=== PATIENT | male | born 1950 | race Caucasian/White ===

== ENCOUNTER 2018-08-01 07:01 | Inpatient (IN) | payer MEDICARE ==
[2018-08-01] VITALS (7 sets, daily range): BP systolic 119–160; BP diastolic 70–103
[~2018-08-01] VITALS: Ht 190.5 cm; Wt 109.3 kg
[2018-08-01] MEDS ORDERED: normal saline 1000ML IV soln IV ONE (07:15)
[2018-08-01] MEDS ORDERED: famotidine/PF 10 mg/ml inj IV ONE (07:15)
[2018-08-01] MEDS ORDERED: pantoprazole 40 MG vial IV ONE (07:15)
[2018-08-01] MEDS ORDERED: pantoprazole 40MG/NS 100ML BAG 100 ML IV ONE (07:30)
[2018-08-01] MEDS ORDERED: ASPI-1265 PO (07:47)
[2018-08-01] MEDS ORDERED: LOVA20TA2 PO (07:48)
[2018-08-01] MEDS ORDERED: BENA20TA82 PO (07:49)
[2018-08-01] MEDS ORDERED: DILT360C29 PO (07:50)
[2018-08-01 08:01] LABS: BASOPHILS # (AUTO) 0.1 X10'3 (0-0.2); BASOPHILS % (AUTO) 1.5 % (0-1); EOSINOPHILS % (AUTO) 0.2 % (0-6); HEMATOCRIT 42.3 % (42.0-52.0); HEMOGLOBIN 14.4 g/dl (14.0-17.9); LYMPHOCYTES # (AUTO) 0.8 X10'3 (1.1-4.8); LYMPHOCYTES % (AUTO) 8.9 % (21-51); MEAN CORPUSCULAR HEMOGLOBIN 32.5 PG (27.0-31.0); MEAN CORPUSCULAR VOLUME 95.3 FL (78-98); MEAN PLATELET VOLUME 8.9 FL (7.4-10.4); MONOCYTES # (AUTO) 0.6 X10'3 (0-0.9); MONOCYTES % (AUTO) 6.7 % (2-12); NEUTROPHILS # (AUTO) 7.4 X10'3 (1.8-7.7); NEUTROPHILS % (AUTO) 82.7 % (42-75); PLATELET COUNT 187 X10'3 (140-440); RED BLOOD COUNT 4.44 X10'6 (4.70-6.10); RED CELL DISTRIBUTION WIDTH 12.2 % (11.5-14.5); WHITE BLOOD COUNT 8.9 X10'3 (4.5-11.0)
[2018-08-01 08:18] LABS: INR 1.1 INR; PARTIAL THROMBOPLASTIN TIME 23 SECONDS (22-32); PROTHROMBIN TIME 10.7 SECONDS (9.0-12.0)
[2018-08-01 08:23] LABS: ALANINE AMINOTRANSFERASE 37 U/L (12-78); ALBUMIN 3.5 G/DL (3.4-5.0); ALBUMIN/GLOBULIN RATIO 1.1 (1.1-1.5); ALKALINE PHOSPHATASE 62 IU/L (46-116); ANION GAP 9 (8-16); ASPARTATE AMINO TRANSFERASE 17 U/L (10-37); BILIRUBIN,TOTAL 0.5 MG/DL (0.1-1.0); BLOOD UREA NITROGEN 47 MG/DL (7-18); BUN/CREATININE RATIO 35.3 (5.4-32.0); CALCIUM 9.2 MG/DL (8.5-10.1); CHLORIDE 105 MMOL/L (99-107); CREATININE 1.33 MG/DL (0.60-1.10); GLUCOSE 129 MG/DL (70-104); POTASSIUM 4.8 MMOL/L (3.5-5.1); SODIUM 137 MMOL/L (135-145); TOTAL CARBON DIOXIDE 22.8 MMOL/L (24-32); TOTAL PROTEIN 6.6 G/DL (6.4-8.2); eGFR 54 ML/MIN
[2018-08-01 08:31] LABS: CLARITY,URINE CLEAR (Clear); COLOR,URINE STRAW (Yellow); GLUCOSE, URINE NEGATIVE (Neg); KETONES,URINE TRACE mg/dl (Neg); LEUKOCYTE ESTERASE ,URINE NEGATIVE (Neg); NITRITES, URINE NEGATIVE (Neg); OCCULT BLOOD,URINE NEGATIVE (Neg); PROTEIN,URINE NEGATIVE (Neg); UA COLLECTION TYPE CLN CATCH MIDSTREAM; UROBILINOGEN,URINE 0.2 E.U/dL (0.2-1.0)
[2018-08-01 09:30] LABS: PLATELET ESTIMATE NORMAL; TOTAL CELLS COUNTED 100
--- NOTE | 2018-08-01 09:55 | NUR ---
Pt. denies c/o. at bedside. Awaiting hospital admission.
[2018-08-01] MEDS ORDERED: magnesium hydroxide 30ml (MOM) UD suspension PO PRN (12:30)
[2018-08-01] MEDS ORDERED: ondansetron/PF 4mg/2ml inj IV PRN (12:30)
[2018-08-01] MEDS ORDERED: magnesium Cl slow-release 64mg tablet PO PRN (12:30)
[2018-08-01] MEDS ORDERED: mag hydrox/Alum hydrox/simeth 30ml oral suspension PO PRN (12:30)
[2018-08-01] MEDS ORDERED: potassium Cl 20 mEq SR tablet PO PRN ×2 (12:30)
[2018-08-01] MEDS ORDERED: magnesium 4gm in 100ml NS 100 ML IV PRN (12:30)
[2018-08-01] MEDS ORDERED: acetaminophen 325mg tablet PO PRN ×2 (12:30)
[2018-08-01] MEDS ORDERED: potassium Cl 40MEQ/NS 500ml 500 ML IV PRN ×2 (12:30)
[2018-08-01] MEDS: normal saline 1000ml 1,000 ML IV SCH ×2 (13:05→22:27)
[2018-08-01] MEDS ORDERED: fentaNYL/PF 50MCG/1 ML 2ML syringe ONE (15:17)
[2018-08-01] MEDS ORDERED: MIDAZolam 5mg/5ml vial ONE (15:18)
[2018-08-01] MEDS ORDERED: LIDOcaine Viscous 15ml cup ONE (15:18)
[2018-08-01] MEDS: pantoprazole 40MG/NS 100ML BAG 100 ML IV SCH ×2 (17:32→22:06)
--- NOTE | 2018-08-01 18:36 | NUR ---
Problems reprioritized. Patient report given, questions answered & plan of care reviewed with JAROCHO Alaniz & Diego RN.
--- NOTE | 2018-08-01 18:40 | NUR ---
Patient in room PCU 3017. I have received report from JAROCHO Majano and had the opportunity to ask questions and assume patient care. Patient is awake and alert with family present at bedside. Patient is NPO at this time. In no distress, A&Ox4.
[2018-08-01] MEDS ORDERED: temazepam 15mg capsule PO PRN (21:00)
[2018-08-02 02:00] VITALS: BP 148/98
[2018-08-02] MEDS: pantoprazole 40MG/NS 100ML BAG 100 ML IV SCH ×3 (02:34→09:49)
[2018-08-02] MEDS: normal saline 1000ml 1,000 ML IV SCH (02:35)
[2018-08-02 05:51] LABS: HEMATOCRIT 32.3 % (42.0-52.0); HEMOGLOBIN 11.3 g/dl (14.0-17.9); MEAN CORPUSCULAR HEMOGLOBIN 33.3 PG (27.0-31.0); MEAN CORPUSCULAR VOLUME 95.1 FL (78-98); RED CELL DISTRIBUTION WIDTH 12.4 % (11.5-14.5); WHITE BLOOD COUNT 5.4 X10'3 (4.5-11.0)
[2018-08-02 05:52] LABS: MEAN PLATELET VOLUME 8.4 FL (7.4-10.4); PLATELET COUNT 153 X10'3 (140-440)
[2018-08-02 06:04] LABS: ALBUMIN 3.1 G/DL (3.4-5.0); ANION GAP 8 (8-16); BLOOD UREA NITROGEN 24 MG/DL (7-18); BUN/CREATININE RATIO 21.4 (5.4-32.0); CALCIUM 7.8 MG/DL (8.5-10.1); CHLORIDE 107 MMOL/L (99-107); CREATININE 1.12 MG/DL (0.60-1.10); GLUCOSE 99 MG/DL (70-104); MAGNESIUM 1.8 MG/DL (1.5-2.4); POTASSIUM 3.9 MMOL/L (3.5-5.1); SODIUM 139 MMOL/L (135-145); TOTAL CARBON DIOXIDE 24.5 MMOL/L (24-32); eGFR 65 ML/MIN
--- NOTE | 2018-08-02 06:44 | NUR ---
Patient in room PCU 3017. I have received report from Katty AVENDAÑO and had the opportunity to ask questions and assume patient care.
--- NOTE | 2018-08-02 06:45 | NUR ---
Problems reprioritized. Patient report given, questions answered & plan of care reviewed with JAROCHO Hair.
[2018-08-02 07:00] VITALS: BP 108/75
--- NOTE | 2018-08-02 07:13 | NUR ---
[place] documentation: I have reviewed and agree with all interventions, assessments performed and documented by JAROCHO Cortez.
--- NOTE | 2018-08-02 07:30 | NUR ---
[place] Medication Administration: For this medication-pass time frame, all medication were reviewed, dispensed, administered and documented per hospital policy by JAROCHO Cortez .
[2018-08-02] MEDS ORDERED: K and/or MAG REPLACEMENT MC SCH (08:00)
[2018-08-02] MEDS ORDERED: lisinopril 20mg tablet PO SCH (08:00)
[2018-08-02 11:00] VITALS: BP 133/74
[2018-08-02 12:17] LABS: HEMATOCRIT 34.2 % (42.0-52.0); HEMOGLOBIN 11.7 g/dl (14.0-17.9); MEAN CORPUSCULAR HEMOGLOBIN 32.5 PG (27.0-31.0); MEAN CORPUSCULAR HGB CONC 34.3 % (33.0-36.5); MEAN CORPUSCULAR VOLUME 94.8 FL (78-98); MEAN PLATELET VOLUME 8.4 FL (7.4-10.4); PLATELET COUNT 161 X10'3 (140-440); RED BLOOD COUNT 3.61 X10'6 (4.70-6.10); RED CELL DISTRIBUTION WIDTH 12.4 % (11.5-14.5); WHITE BLOOD COUNT 5.6 X10'3 (4.5-11.0)
[2018-08-02] MEDS ORDERED: pantoprazole 40MG/NS 100ML BAG 100 ML IV ONE (15:35)
[2018-08-02] MEDS ORDERED: PANT-47 PO (16:28)
--- NOTE | 2018-08-02 18:33 | NUR ---
Pt safely discharged. All paperwork completed, reviewed, and signed. IV dc'd, id bracelets removed, tele box returned. Pt happy with care and discharge.
[2018-08-05 09:45] LABS: OCCULT BLOOD STOOL POSITIVE (Neg)
== END 2018-08-02 17:30 | disposition home or self-care (01) | DRG 682 ==
LOC: ER 07:02 → ED HOLD 12:27 → PCU 3S 16:00 → CMPBEDREQ 19:27
PROVIDERS: ADMIT Family Medicine; ATTEND Hospitalist
PROC: 0DB68ZX Excision of Stomach, Via Natural or Artificial Opening Endoscopic, Diagnostic (ICD-10-PCS; principal; 2018-08-01)
PROC: 0W3P8ZZ Control Bleeding in Gastrointestinal Tract, Via Natural or Artificial Opening Endoscopic (ICD-10-PCS; 2018-08-01)
DX: N17.9 Acute kidney failure, unspecified (principal); K26.4 Chronic or unspecified duodenal ulcer with hemorrhage; E78.5 Hyperlipidemia, unspecified; K29.70 Gastritis, unspecified, without bleeding; T39.395A Adverse effect of other nonsteroidal anti-inflammatory drugs [NSAID], initial encounter; E86.0 Dehydration; K20.9 Esophagitis, unspecified; F10.10 Alcohol abuse, uncomplicated; I10 Essential (primary) hypertension; Z79.899 Other long term (current) drug therapy; Z79.82 Long term (current) use of aspirin; Z86.73 Personal history of transient ischemic attack (TIA), and cerebral infarction without residual deficits; Y92.89 Other specified places as the place of occurrence of the external cause
CPT/HCPCS: 36415; 43239; 71045; 80048; 80053; 81003; 82272; 83735; 85025; 85027; 85610; 85730; 86885; 86900; 86901; 88305; 88342; 93005; 96365; 96375; 99152; 99285; A4620; C9113; G0378; J2250; J3010; J3490; J7030

== ENCOUNTER 2022-11-25 07:25 | Day surgery (SDC) | payer MEDICARE ==
[2022-11-24 09:05] LABS: BASOPHILS % (AUTO) 0.8 % (0-1); EOSINOPHILS # (AUTO) 0.1 X10'3 (0-0.9); EOSINOPHILS % (AUTO) 1.8 % (0-6); HEMATOCRIT 49.5 % (42.0-52.0); HEMOGLOBIN 17.2 g/dl (14.0-17.9); LYMPHOCYTES # (AUTO) 0.9 X10'3 (1.1-4.8); LYMPHOCYTES % (AUTO) 17.5 % (21-51); MEAN CORPUSCULAR HEMOGLOBIN 32.9 PG (27.0-31.0); MEAN CORPUSCULAR HGB CONC 34.8 g/dL (33.0-36.5); MEAN CORPUSCULAR VOLUME 94.6 FL (78-98); MONOCYTES # (AUTO) 0.6 X10'3 (0-0.9); MONOCYTES % (AUTO) 12.4 % (2-12); NEUTROPHILS # (AUTO) 3.3 X10'3 (1.8-7.7); NEUTROPHILS % (AUTO) 67.5 % (42-75); PLATELET COUNT 142 X10'3 (140-440); RED BLOOD COUNT 5.23 X10'6 (4.70-6.10)
[2022-11-24 09:15] LABS: APTT 28 SECONDS (22-32)
[2022-11-24 09:21] LABS: ALBUMIN 4.1 G/DL (3.4-5.0); ANION GAP 10 (8-16); BLOOD UREA NITROGEN 16 MG/DL (7-18); BUN/CREATININE RATIO 14.4 (10.0-20.0); CALCIUM 9.1 MG/DL (8.5-10.1); CHLORIDE 104 MMOL/L (99-107); CREATININE 1.11 MG/DL (0.60-1.10); GLUCOSE 107 MG/DL (70-104); POTASSIUM 3.7 MMOL/L (3.5-5.1); SODIUM 137 MMOL/L (135-145); TOTAL CARBON DIOXIDE 23.3 MMOL/L (24-32); eGFR 65 ML/MIN
[2022-11-25] VITALS (13 sets, daily range): BP systolic 142–187; BP diastolic 79–97
[~2022-11-25] VITALS: Ht 190.5 cm; Wt 111.4 kg
[~2022-11-25 07:25] MED LIST: ASPI-1071 PO; LOP25T PO; NITR0.4T51 SL; ROSU5TAB PO; TEST200V33 SQ
[2022-11-25] MEDS ORDERED: normal saline 1,000 ML IV SCH (07:45)
[2022-11-25] MEDS ORDERED: diphenhydrAMINE 25mg capsule PO PRN (07:45)
[2022-11-25] MEDS ORDERED: LORazepam 0.5 MG tablet PO PRN (07:45)
[2022-11-25] MEDS ORDERED: LIDOcaine 1% (10mg/ml) 2ml vial ONE (08:09)
[2022-11-25] MEDS ORDERED: UBID100C16 PO (08:09)
[2022-11-25] MEDS ORDERED: fentaNYL/PF 50MCG/1 ML 2ML syringe ONE (08:09)
[2022-11-25] MEDS ORDERED: midazolam 1 mg/ML 2ml injection ONE (08:09)
[2022-11-25] MEDS ORDERED: verapamil 2.5 mg/ml inj IV ONE (08:09)
[2022-11-25] MEDS ORDERED: MAGN100T5 PO (08:09)
[2022-11-25] MEDS ORDERED: nitroGLYCERIN-Tridil 50MG/D5W 250 ML IV ONE (08:09)
[2022-11-25] MEDS ORDERED: heparin 1,000unit/ml 10ml vial 10 ML ONE (08:09)
[2022-11-25] MEDS ORDERED: ASPI-1071 PO (08:09)
[2022-11-25] MEDS ORDERED: TADA20TA PO (08:09)
[2022-11-25] MEDS ORDERED: NITR0.4T48 SL (08:09)
[2022-11-25] MEDS ORDERED: iohexol 350 MG/ML 50ML vial IV ONE (08:10)
[2022-11-25] MEDS ORDERED: iohexol 350MG/ML 100ml bottle IV ONE ×2 (08:10→10:11)
[2022-11-25] MEDS ORDERED: ROSU20TA31 PO (08:15)
[2022-11-25] MEDS ORDERED: TEST200V6 IM (08:22)
[2022-11-25] MEDS ORDERED: CHOL50004 PO (08:22)
[2022-11-25] MEDS ORDERED: Cyanocobalamin PO (08:22)
[2022-11-25] MEDS ORDERED: heparin 25,000 UNIT/250ml bag 250 ML IV ONE (10:11)
[2022-11-25] MEDS ORDERED: clopidogrel 300mg tablet ONE (10:32)
[2022-11-25] MEDS ORDERED: atropine 0.1mg/ml 10ml syringe ONE (10:37)
--- NOTE | 2022-11-25 10:52 | NUR ---
Bedside report received from JAROCHO Grace s/p heart cath with PCI. Heparin gtt at 1000 units/hour. Right radial stable. Vasc band in place with no bleeding/hematoma noted.
--- NOTE | 2022-11-25 12:00 | NUR ---
Heparin gtt discontinued.
[2022-11-26] MEDS ORDERED: clopidogrel 75mg tablet PO SCH (10:50)
== END 2022-11-25 17:43 | disposition home or self-care (01) ==
LOC: SSTAY O 07:25
PROVIDERS: ATTEND Internal Medicine Cardiovascular Disease
DX: I25.10 Atherosclerotic heart disease of native coronary artery without angina pectoris (principal); E78.5 Hyperlipidemia, unspecified; I65.22 Occlusion and stenosis of left carotid artery; I10 Essential (primary) hypertension; I27.21 Secondary pulmonary arterial hypertension; Z95.5 Presence of coronary angioplasty implant and graft; Z79.82 Long term (current) use of aspirin; Z79.899 Other long term (current) drug therapy; Z87.891 Personal history of nicotine dependence; Z72.89 Other problems related to lifestyle; Z82.49 Family history of ischemic heart disease and other diseases of the circulatory system
CPT/HCPCS: 36415; 76937; 80048; 85025; 85347; 85610; 85730; 93005; 93458; 99152; 99153; C1725; C1751; C1769; C1874; C1894; C9600; J0461; J1644; J2250; J3010; J3490; J7030; Q0163; Q9967; A6258

== ENCOUNTER 2023-07-01 01:24 | Emergency (ER) | payer MEDICARE ==
[~2023-07-01] VITALS: Ht 190.5 cm; Wt 108.0 kg
[~2023-07-01 01:24] MED LIST changes: +CHOL50004 PO; +Cyanocobalamin PO; -LOP25T PO; +MAGN100T5 PO; +NITR0.4T48 SL; -NITR0.4T51 SL; +ROSU20TA73 PO; -ROSU5TAB PO; +TADA20TA PO; -TEST200V33 SQ; +TEST200V6 IM; +UBID100C16 PO
[2023-07-01 01:30] VITALS: TEMP 98.9
[2023-07-01 02:03] LABS: BASOPHILS % (AUTO) 0.5 % (0-1); EOSINOPHILS # (AUTO) 0.1 X10'3 (0-0.9); EOSINOPHILS % (AUTO) 0.7 % (0-6); HEMATOCRIT 43.2 % (42.0-52.0); HEMOGLOBIN 14.7 g/dl (14.0-17.9); LYMPHOCYTES % (AUTO) 9.7 % (21-51); MEAN CORPUSCULAR HEMOGLOBIN 32.8 PG (27.0-31.0); MEAN CORPUSCULAR HGB CONC 34.1 g/dL (33.0-36.5); MEAN PLATELET VOLUME 8.2 FL (7.4-10.4); MONOCYTES # (AUTO) 1.1 X10'3 (0-0.9); MONOCYTES % (AUTO) 10.5 % (2-12); NEUTROPHILS # (AUTO) 8.2 X10'3 (1.8-7.7); NEUTROPHILS % (AUTO) 78.6 % (42-75); PLATELET COUNT 137 X10'3 (140-440); RED CELL DISTRIBUTION WIDTH 13.5 % (11.5-14.5); WHITE BLOOD COUNT 10.5 X10'3 (4.5-11.0)
[2023-07-01 02:08] LABS: ALANINE AMINOTRANSFERASE 45 U/L (12-78); ALBUMIN 3.9 G/DL (3.4-5.0); ALBUMIN/GLOBULIN RATIO 1.3 (1.1-1.5); ALKALINE PHOSPHATASE 80 IU/L (46-116); ANION GAP 12 (8-16); ASPARTATE AMINO TRANSFERASE 25 U/L (10-37); BILIRUBIN,TOTAL 0.5 MG/DL (0.1-1.0); BLOOD UREA NITROGEN 14 MG/DL (7-18); BUN/CREATININE RATIO 11.9 (10.0-20.0); CHLORIDE 102 MMOL/L (99-107); CREATININE 1.18 MG/DL (0.60-1.10); GLUCOSE 110 MG/DL (70-104); POTASSIUM 3.8 MMOL/L (3.5-5.1); SODIUM 137 MMOL/L (135-145); TOTAL CARBON DIOXIDE 23.4 MMOL/L (24-32); TOTAL PROTEIN 6.9 G/DL (6.4-8.2); eCRCL 68 ML/MIN; eGFR 61 ML/MIN
[2023-07-01 02:15] LABS: PRO BRAIN NATRIURETIC PEPTIDE 348 PG/ML (0-125)
[2023-07-01] MEDS ORDERED: orphenadrine citrate 60mg/2ml inj. IM ONE ×2 (03:10→03:50)
[2023-07-01] MEDS ORDERED: ketorolac trometh. 30mg/ml inj. IV ONE (03:10)
[2023-07-01] MEDS ORDERED: acetaminophen 325mg tablet PO ONE (03:10)
[2023-07-01] MEDS ORDERED: HYDROcodone/acetaminophen 5mg/325mg tablet PO ONE (03:10)
[2023-07-01 04:56] VITALS: BP 107/53; PULSE 77; O2SAT 95
== END 2023-07-01 05:00 | disposition home or self-care (01) ==
LOC: ER 01:25
DX: R07.9 Chest pain, unspecified (principal); M54.9 Dorsalgia, unspecified; E78.00 Pure hypercholesterolemia, unspecified; I10 Essential (primary) hypertension; Z79.899 Other long term (current) drug therapy
CPT/HCPCS: 36415; 71045; 80053; 83880; 84484; 85025; 93005; 96374; 99285; J1885; J2360